=== PATIENT | female | born 1965 | race Hispanic/Latino ===

== ENCOUNTER 2018-01-29 18:22 | Inpatient (IN) | payer OTHER ==
[2018-01-29 19:33] LABS: Hemoglobin 6.3 g/dL (12.0-16.0); Mean Corpuscular HGB CONC 29.5 g/dL (32.0-36.0); Mean Corpuscular Hemoglobin 19.2 pg (27.0-31.0); Mean Corpuscular Volume 65.2 fl (81.0-99.0); Mean Platelet Volume 7.1 fL (7.4-10.4); Platelet Count 142 thou/uL (130-400); RBC Distribution Width 23.2 % (11.5-14.5); Red Blood Cell (RBC) Count 3.26 mill/uL (4.20-5.40); White Blood Cell (WBC) Count 7.8 thou/uL (4.8-10.8)
[2018-01-29 19:36] LABS: INR-International Normal Ratio 1.2; PTT 32.3 SEC (22.9-36.1); Prothrombin Time 15.4 SEC (12.0-14.7)
--- NOTE | 2018-01-29 19:41 | RAD ---
FRONTAL VIEW CHEST: INDICATIONS: Chest pain. COMPARISON: No prior comparison. FINDINGS: There is no evidence of consolidation, effusion, or pneumothorax. The cardiac silhouette is normal in size. Leads overly the chest, limiting detail. No acute osseous pathology is seen. IMPRESSION: No focal consolidation. POS: [facility]
[2018-01-29 19:58] LABS: MDiff Complete? YES
[2018-01-29 19:59] LABS: Anisocytosis MODERATE=16-30 cells (100X) (0-5/hpf); Band 2 % (5-11); Burr Cells SLIGHT = 2-5 cells (100X) (0-1/hpf); Elliptocytes SLIGHT = 2-5 cells (100X) (0-1/hpf); Eosinophils 2 % (0-10); Hypochromia MODERATE=16-30 cells (100X) (0-5/hpf); Lymphocytes 36 % (21-51); Microcytosis SLIGHT = 6-15 cells (100X) (0-5/hpf); Monocytes 1 % (0-10); Neutrophil 58 % (42-75); Nucleated RBC 1 % (0); Ovalocytes SLIGHT = 2-5 cells (100X) (0-1/hpf); PLT Morphology Comment Appears Adequate; Poikilocytosis MODERATE=16-30 cells (100X) (0-5/hpf); Polychromasia SLIGHT = 2-3 cells (100X) (0-2/hpf); Reflex for Review?? YES; Schistocytes SLIGHT = 2-5 cells (100X) (0-1/hpf); Tear Drops SLIGHT = 2-5 cells (100X) (0-1/hpf)
[2018-01-29 20:06] LABS: Bilirubin Negative (Negative); Blood, Urine Large (Negative); Clarity CLOUDY (Clear); Glucose, Urine (Dipstick) Negative (Negative); Leukocyte Moderate (Negative); Nitrite Positive (Negative); Protein, Urine (Dipstick) Trace mg/dL (Neg-Trace); Specific Gravity, Urine 1.016 (1.002-1.036)
[2018-01-29 20:08] LABS: Bacteria/HPF 4+ HPF (None Seen); Hyaline Casts/LPF 7-10 HYALINE CAST LPF (0-3 Hyaline); Pathc Cast-AUWi Flag 0.87 (0-2.49); RBC/HPF 21-50 HPF (0-3)
[2018-01-29 20:10] LABS: Pregnancy Test - Urine (BHCG) Negative (Negative); Pregu Control Background? CLEAR/WHITE (CLR/WHITE); Pregu Control Bar Appear? YES (CONTROL BAR); Specific Gravity 1.016 (1.002-1.036)
[2018-01-29 20:11] LABS: Anion Gap 9 mmol/L (10-20); BUN (Urea Nitrogen) 10 mg/dL (9.8-20.1); Calc. Creatinine Clearance 0 mL/min (70-130); Calcium 8.1 mg/dL (7.8-10.44); Carbon Dioxide 21 mmol/L (22-29); Chloride 110 mmol/L (98-107); Estimated GFR-MDRD Greater than 90; Glucose 70 mg/dL (70-105); Potassium 3.7 mmol/L (3.5-5.1); Sodium 136 mmol/L (136-145)
--- NOTE | 2018-01-29 20:56 | HP ---
DATE OF ADMISSION: 01/29/2018 CHIEF COMPLAINT: Dizziness. HISTORY OF PRESENT ILLNESS: This is a 52-year-old female. She lives in [place] and she wa s having some spotting for the past 1 to 2 years and has been closely followed by joaquín Gibbons by GI by, OB /CARDIAC NURSE SPECIALIST at [facility]. Today, she was feeling very dizzy and very tired and weak and she went to see Dr. Becerra at [place]. She is GRINDER OUTSIDE DIAMETER and she was found to have a hemoglobin of 3.2, 3.8 and the p atient was immediately given 2 units of blood transfusion and was transferred to [facility] for further evaluation. When patient arrived here, her repeat hemoglobin was 6.2 and she continues t o have dizziness. Denied having any chest pain, no nausea, no vomiting, no diarrhea. She denied hav ing any severe bleeding, so Dr. Shelby Lopes was consulted from the ER, who said there would be seei tobias hagan as a consult later in the evening once she has a blood transfusion is completed. Patient was seen in the ER, she was alert and oriented, did not appear to be in any acute distress. Denies havin g any nausea, vomiting, diarrhea. Denied having any GI bleeding. She did complain of burning on pas sing urine. Denied having any fever or chills or rigors. As the patient mentions that she started having intermittent bleeding for the past 2 years and she wa s put on IUD at [facility] [place] in 2016, but because of the persistent bleeding, IUD did fell o ff according to the patient. She denied taking any estrogen pills or any other medications to contro l the bleeding. She is not on any iron medications. PAST MEDICAL HISTORY: 1. Type 2 diabetes mellitus. 2. Iron deficiency anemia from chronic uterine bleeding. PAST SURGICAL HISTORY: History of cholecystectomy, history of tubal ligation, history of tonsillecto my. SOCIAL HISTORY: Patient is a nonsmoker. She is on nicotine patch now. She has no history of alcoho l or history of illicit drug use. FAMILY HISTORY: Patient says most of them in the family members had hysterectomy at a much early age than her, but otherwise no cancer history. REVIEW OF SYSTEMS: All 12 systems are reviewed with the patient thoroughly and found to be negative at this time. Systems reviewed are HEENT, CVS, ENVIRONMENTAL EMERGENCIES ASSISTANT, respiratory, GI, . All systems are reviewed a nd found to be negative except the ones stated in HPI. Constitutional: Weight loss or gain, ability to conduct usual activities. Skin: Rash, itching. Eyes: Double vision, pain. ENT/Mouth: Nose bleeding, neck stiffness, pain, tenderness. Cardiovascular: Palpitations, dyspnea on exertion, orthopnea. Respiratory: Shortness of breath, wheezing, cough, hemoptysis, fever or night sweats. Gastrointestinal: Poor appetite, abdominal pain, heartburn, nausea, vomiting, constipation, or diarr hea. Genitourinary: Urgency, frequency, dysuria, nocturia. Musculoskeletal: Pain, swelling. Neurologic/Psychiatric: Anxiety, depression. Allergy/Immunologic: Skin rash, bleeding tendency. HOME MEDICATIONS: None. ALLERGIES: No known drug allergies. PHYSICAL EXAMINATION: VITAL SIGNS: Blood pressures are 140/88, heart rate is 80, respiration is 18, saturation is 98%. GENERAL: The patient is moderately built. HEENT: Atraumatic, normocephalic, PERRLA. Extraocular muscles were intact. CARDIOVASCULAR: S1, S2 normal. No murmurs, rubs, or gallops. LUNGS: Bilateral air entry was equal. No wheezing, no crackles. ABDOMEN: Soft, nontender, no guarding, no rebound tenderness. Bowel sounds normal. MUSCULOSKELETAL: No calf tenderness. No pedal edema. No tenderness. No joint swelling. SKIN: No cyanosis, no edema, no rash, no pallor. NEUROLOGIC: Cranial nerve examination II-XII intact. No focal deficits were noted. PSYCHIATRIC: No signs of consolidation or signs of jenni was noted. LABORATORY DATA: WBC is 7.8, hemoglobin is 6.3, hematocrit is 21.3, platelets are 142. CMP is pendi ng at this time. ASSESSMENT AND PLAN: 1. Acute anemia blood loss from uterine bleeding. 2. Acute urinary tract infection. 3. Moderate dehydration. 4. Dizziness. PLAN: 1. Plan is to give 2 more units of blood transfusion at this time and closely monitor for any profus e bleeding. GRINDER OUTSIDE DIAMETER has been consulted Dr. Marianne Ryan. We will follow with her recommendations at this time. 2. Patient has evidence of urinary tract infection. We will start the patient on Rocephin 1 gram da harjinder and wait for urine cultures. Patient did not seem to be septic at this time. She has some ortho static symptoms with a drop in the blood pressures on standing, most likely this could be from the ac [place] blood loss. We will closely monitor with fall precautions. 3. Deep venous thrombosis prophylaxis, sequential compression device. 4. Patient has a history of type 2 diabetes mellitus, which seems to be well controlled. We will re start the patient on home medications and put the patient on sliding scale insulin at this time. The patient is more negative and spent 75 minutes of this patient.
[2018-01-29] MEDS ORDERED: Ondansetron HCl/PF 4 MG/2 ML Vial IVP PRN (22:15)
[2018-01-29] MEDS ORDERED: Acetaminophen 325 MG TAB PO PRN ×2 (22:15→22:26)
[2018-01-29] MEDS ORDERED: Ondansetron ODT 4 MG TAB SL PRN (22:15)
[2018-01-29] MEDS ORDERED: Dextrose 50% Abboject 50 ML SYRINGE SLOW IVP PRN (22:26)
[2018-01-29] MEDS ORDERED: Dextrose 5% in Water 1,000 ML IV PRN (22:26)
[2018-01-29] MEDS ORDERED: HYDROcodone/Acetaminophen 5/325 mg Tablet PO PRN (22:26)
[2018-01-29] MEDS ORDERED: Ondansetron ODT 4 MG TAB PO PRN (22:26)
[2018-01-29] MEDS ORDERED: HumaLOG 300 UNITS/3 ML VIAL SC PRN (22:26)
[2018-01-29] MEDS ORDERED: Famotidine 20 MG TAB PO SCH (22:45)
[2018-01-29] MEDS ORDERED: Docusate 100 MG CAP PO SCH (22:45)
[2018-01-29 23:23] VITALS: BMI 25.4
[2018-01-29] MEDS: Sodium Chloride 0.9% 1,000 ML IV SCH (23:43)
[2018-01-30] MEDS: Sodium Chloride 0.9% 1,000 ML IV SCH (05:33)
[2018-01-30 05:53] LABS: Anion Gap 8 mmol/L (10-20); BUN (Urea Nitrogen) 13 mg/dL (9.8-20.1); Calc. Creatinine Clearance 100 mL/min (70-130); Calcium 8.3 mg/dL (7.8-10.44); Carbon Dioxide 23 mmol/L (22-29); Chloride 111 mmol/L (98-107); Estimated GFR-MDRD Greater than 90; Glucose 84 mg/dL (70-105); Potassium 4.1 mmol/L (3.5-5.1); Sodium 138 mmol/L (136-145)
[2018-01-30 06:12] LABS: #Basophils 0.1 thou/uL (0.0-0.2); #Eosinphils 0.2 thou/uL (0.0-0.7); #Monocytes 0.6 thou/uL (0.11-0.59); #Neutrophils 6.9 thou/uL (1.40-6.50); %Basophils 0.7 % (0.0-1.0); %Eosinophils 2.2 % (0.0-10.0); %Lymphocytes 11.7 % (21.0-51.0); %Monocytes 6.8 % (0.0-10.0); %Neutrophils 78.7 % (42.0-75.0); Acanthocytes SLIGHT = 1-5 cells (100X) (None Seen); Anisocytosis MODERATE=16-30 cells (100X) (0-5/hpf); Bite Cells SLIGHT = 2-5 cells (100X) (0-1/hpf); Hemoglobin 8.2 g/dL (12.0-16.0); Hypochromia MODERATE=16-30 cells (100X) (0-5/hpf); MDiff Complete? YES; Mean Corpuscular HGB CONC 31.4 g/dL (32.0-36.0); Mean Corpuscular Hemoglobin 21.6 pg (27.0-31.0); Mean Corpuscular Volume 68.9 fl (81.0-99.0); Mean Platelet Volume 7.6 fL (7.4-10.4); Microcytosis MODERATE=15-30 cells (100X) (0-5/hpf); PLT Morphology Comment Appears Decreased; Platelet Count 121 thou/uL (130-400); RBC Distribution Width 24.1 % (11.5-14.5); Schistocytes SLIGHT = 2-5 cells (100X) (0-1/hpf); White Blood Cell (WBC) Count 8.8 thou/uL (4.8-10.8)
[2018-01-30] MEDS ORDERED: Famotidine 20 MG TAB PO SCH (09:00)
[2018-01-30] MEDS ORDERED: Docusate 100 MG CAP PO SCH (09:00)
--- NOTE | 2018-01-30 09:02 | PDOC.EVN ---
Event Note - Event Note Event Note: GYNECOLOGY CONSULTATION Asked to see Mrs Zhang this AM by Dr Ryan. The patient was admitted late last PM by James for dizziness and has recieved 4 units PRBCs for severe anemia due to HMB. HPI: 52 yo pleasant female, A1 with HX HMB. She is a patient of [facility] and has tried an IUS in the past for bleeding control, but by her story, it was expelled with an episode of HMB. She was sent here to [facility] for HMB. I saw the patient this am (01/30/18, 0845) after she was moved to the procedure room in 3 SE from 4 tower. I discuseed with her the need for EMB. I also discussed sono with her...that has been ordered for today. Prior sono did not show fibroids, by her verbal record. Now feels better. Review odf Systems: complete ROS performed and as per HPI. Past medical: DM Allergies: None Past Surg: Lorraine, BTL, tonsils Social: uses nicotine patch. Not sexually active PHYSICAL: VSS-AFEB NAD Pelvic: slight VB per os. Slightly atrophic changes, cervix without lesions...patent and multiparous No evidence lacs Assessment and plan: Perimenopausal pateint with HX HMB..now s/p 4 units PRBCs by Medicine. I performed EMB under clean conditions. CX prepped with betadine. Procedure details: PROCEDURE NOTE: EMB performed on 3 SE with Marianne, the patient's nurse at bedside. Rings were used to stabilize the anterior cervical lip. 3 passes by pipelle resulted in tissue into formaline jar. Patient to follow up at [facility] in one week for EMB results. Home with provera 10mg 1 po TID x 10 days to reduce bleeding. Sono prior to discharge home is recommended (sono ordered).
[2018-01-30] MEDS ORDERED: Ibuprofen 600 MG TAB PO PRN (10:22)
--- NOTE | 2018-01-30 10:44 | ULT ---
PELVIC ULTRASOUND: History: Abnormal uterine bleeding and anemia. Technique: Multiplanar grayscale and color doppler images were obtained in a transabdominal and trans vaginal pelvic ultrasound. Spectral analysis of the doppler waveforms of the ovaries were performed. FINDINGS: There is a small nabothian cyst in the cervix. The uterus is normal in size and appears without focal abnormality. The endometrial stripe is normal, measuring 14 mm. A small amount of free fluid is seen in the pelvis. Both ovaries are normal in size and appearance an d demonstrate normal internal flow. IMPRESSION: Nabothian cyst; otherwise unremarkable exam. POS: [facility]
[2018-01-30 13:11] VITALS: BP 144/76; TEMP 98.7
[2018-01-30] MEDS ORDERED: medroxyPROGESTERone Acetate 5 MG TAB PO SCH (15:00)
[2018-01-30] MEDS ORDERED: cefTRIAXone\\ROCEPHIN 1 GM in Sterile Water 10 ML SLOW IVP SCH (20:00)
--- NOTE | 2018-01-31 09:34 | DIS ---
DATE OF DISCHARGE: 01/30/2018 DISCHARGE DISPOSITION: Home. FOLLOWUP: Follow up with primary care physician, Dr. Becerra in 1 week. Follow up at [facility] as scheduled. ALLERGIES: No known drug allergies. The patient was seen on the day of discharge, denies any new complaints, symptomatically feels much b sandra. Requesting to be discharged. BRIEF HOSPITAL COURSE: The patient is a 52-year-old female with chronic menorrhagia presented to the emergency room with generalized weakness and dizziness. Her workup in the emergency room was consis tent with severe anemia with hemoglobin of 3.8 and hematocrit of 13.6. Please refer to the history a nd physical dated 01/29/2018 for further details. The patient was admitted to the hospital with a diagnosis of severe anemia secondary to menorrhagia. She received a total of 4 units of blood transfusion. The patient was evaluated by HEARING AID ASSISTANT, Dr. Eliu mace and Dr. Colon. She underwent endometrial biopsy. She will be discharged home with Provera for t he next 10 days. She was advised to [facility]. The patient was also found to have E. coli urinary tract infection sensitive to Bactrim. She will co mplete a course of Bactrim. Plan of care was discussed with the patient. She stated understanding. FINAL DIAGNOSES: 1. Generalized weakness secondary to severe anemia. 2. Blood loss anemia secondary to menorrhagia. 3. Urinary tract infection, Escherichia coli. 4. Dehydration. 5. Dizziness secondary to symptomatic anemia. 6. Diabetes mellitus type 2. 7. Iron deficiency chronic/chronic anemia. Plan of care was discussed with the patient in detail. She stated understanding.
--- NOTE | 2018-02-01 07:45 | PRG ---
DATE OF SERVICE: 02/01/2018 The patient had endometrial biopsy with an AUTOMATION ENGINEERING TECHNICIAN Hospitalist consultation. The pathology has return ed and came back as a benign endometrial polyp. The patient has been referred to [facility] [place] for followup. A copy of the pathology is being forwarded to them to review with the gregorio mitchell
== END 2018-01-30 14:29 | disposition home or self-care (01) | DRG 744 ==
LOC: ERS 18:22 → T4-B 22:05
PROVIDERS: ADMIT Family Medicine; ATTEND Family Medicine
PROC: 30233N1 Transfusion of Nonautologous Red Blood Cells into Peripheral Vein, Percutaneous Approach (ICD-10-PCS; 2018-01-29)
PROC: 0UDB7ZX Extraction of Endometrium, Via Natural or Artificial Opening, Diagnostic (ICD-10-PCS; principal; 2018-01-30)
DX: N88.8 Other specified noninflammatory disorders of cervix uteri (principal); N39.0 Urinary tract infection, site not specified; D50.9 Iron deficiency anemia, unspecified; E86.0 Dehydration; N93.9 Abnormal uterine and vaginal bleeding, unspecified; R42 Dizziness and giddiness; B96.20 Unspecified Escherichia coli [E. coli] as the cause of diseases classified elsewhere; N92.0 Excessive and frequent menstruation with regular cycle
CPT/HCPCS: 36415; 36416; 36430; 71045; 76856; 80048; 81025; 85025; 85060; 85610; 85730; 86850; 86900; 86901; 87077; 87086; 87186; 88305; 93005; 94760; 96374; 99406; A4216; G8978-GP-CH; G8979-GP-CH; G8980-GP-CH; G8987-GO-CH; G8988-GO-CH; G8989-GO-CH; J0696; P9016

== ENCOUNTER 2018-02-13 12:32 | Emergency (ER) | payer OTHER ==
[2018-02-13 13:37] LABS: #Basophils 0.1 thou/uL (0.0-0.2); #Eosinphils 0.1 thou/uL (0.0-0.7); #Lymphocytes 2.2 thou/uL (1.20-3.40); #Monocytes 0.7 thou/uL (0.11-0.59); #Neutrophils 4.4 thou/uL (1.40-6.50); %Basophils 1.7 % (0.0-1.0); %Eosinophils 1.8 % (0.0-10.0); %Lymphocytes 29.2 % (21.0-51.0); %Monocytes 9.6 % (0.0-10.0); %Neutrophils 57.7 % (42.0-75.0); Hemoglobin 9.8 g/dL (12.0-16.0); Mean Corpuscular HGB CONC 30.5 g/dL (32.0-36.0); Mean Corpuscular Hemoglobin 22.6 pg (27.0-31.0); Mean Platelet Volume 6.2 fL (7.4-10.4); Platelet Count 498 thou/uL (130-400); RBC Distribution Width 29.9 % (11.5-14.5); Red Blood Cell (RBC) Count 4.33 mill/uL (4.20-5.40); White Blood Cell (WBC) Count 7.6 thou/uL (4.8-10.8)
[2018-02-13 13:50] LABS: Anisocytosis MODERATE=16-30 cells (100X) (0-5/hpf); Hypochromia SLIGHT = 6-15 cells (100X) (0-5/hpf); Large Platelets SLIGHT; MDiff Complete? YES; Microcytosis SLIGHT = 6-15 cells (100X) (0-5/hpf); Ovalocytes SLIGHT = 2-5 cells (100X) (0-1/hpf); PLT Morphology Comment Appears Increased; Poikilocytosis SLIGHT = 6-15 cells (100X) (0-5/hpf); Polychromasia SLIGHT = 2-3 cells (100X) (0-2/hpf); Schistocytes SLIGHT = 2-5 cells (100X) (0-1/hpf); Target Cells SLIGHT = 2-5 cells (100X) (0-1/hpf); Tear Drops SLIGHT = 2-5 cells (100X) (0-1/hpf)
[2018-02-13 13:51] LABS: Bilirubin Negative (Negative); Blood, Urine Large (Negative); Clarity CLOUDY (Clear); Glucose, Urine (Dipstick) Negative (Negative); Leukocyte Small (Negative); Nitrite Negative (Negative); Protein, Urine (Dipstick) 30 mg/dL (Neg-Trace); Specific Gravity, Urine 1.023 (1.002-1.036)
[2018-02-13 13:52] LABS: BHCG - Serum Negative (NEGATIVE); Pregs Control Background? CLEAR/WHITE (CLR/WHITE); Pregs Control Bar Appear? YES (CONTROL BAR)
[2018-02-13 13:54] LABS: Bacteria/HPF None Seen HPF (None Seen); Hyaline Casts/LPF 0-3 HYALINE CAST LPF (0-3 Hyaline); Pathc Cast-AUWi Flag 0.32 (0-2.49)
[2018-02-13 13:59] LABS: Yeast-AUWi Flag 104.9 (0-25.0)
[2018-02-13 14:50] LABS: RBC/HPF GREATER THAN 50-TNTC HPF (0-3)
[2018-02-13 14:51] LABS: Yeast-All Forms None Seen HPF (None Seen)
== END 2018-02-13 14:46 | disposition home or self-care (01) ==
LOC: ERS 12:32
DX: N93.9 Abnormal uterine and vaginal bleeding, unspecified (principal); E11.9 Type 2 diabetes mellitus without complications; F17.210 Nicotine dependence, cigarettes, uncomplicated; Z79.899 Other long term (current) drug therapy; Z79.84 Long term (current) use of oral hypoglycemic drugs
CPT/HCPCS: 36415; 81003; 81015; 84703; 85025; 99284

== ENCOUNTER 2018-03-09 14:01 | Outpatient (CLI) | payer OTHER ==
[2018-03-09 14:59] LABS: Hemoglobin 11.6 g/dL (12.0-16.0); Mean Corpuscular HGB CONC 31.7 g/dL (32.0-36.0); Mean Corpuscular Hemoglobin 26.9 pg (27.0-31.0); Mean Corpuscular Volume 84.8 fl (81.0-99.0); Platelet Count 276 thou/uL (130-400); RBC Distribution Width 26.4 % (11.5-14.5); Red Blood Cell (RBC) Count 4.32 mill/uL (4.20-5.40); White Blood Cell (WBC) Count 7.7 thou/uL (4.8-10.8)
== END 2018-03-09 14:02 | disposition home or self-care (01) ==
LOC: LABBT 14:01
PROVIDERS: ATTEND Obstetrics & Gynecology
DX: Z01.812 Encounter for preprocedural laboratory examination (principal); N92.0 Excessive and frequent menstruation with regular cycle; N84.0 Polyp of corpus uteri; D64.9 Anemia, unspecified
CPT/HCPCS: 85027; 86850; 86870; 86900; 86901; 86904; 86905; 86922

== ENCOUNTER 2018-03-12 07:27 | Day surgery (SDC) | payer OTHER ==
[2018-03-09 14:13] VITALS: BMI 24.3
[2018-03-12] MEDS ORDERED: CeleCOXIB 100 MG CAP ONE (08:41)
[2018-03-12] MEDS ORDERED: Famotidine/PF 20 mg/2ml Vial ONE ×2 (08:41)
[2018-03-12] MEDS ORDERED: Gabapentin 300 MG CAP ONE (08:41)
[2018-03-12] MEDS ORDERED: CEFAZOLIN/Water 2 GM/20 ML SYRINGE ONE (08:41)
[2018-03-12] MEDS ORDERED: Bupivacaine HCl 0.5%/Epinephrine 1:200,000/PF 30 ml Vial ONE (09:04)
[2018-03-12] MEDS ORDERED: Fentanyl 250 MCG/5 ML VIAL ONE (09:07)
--- NOTE | 2018-03-12 09:19 | HP ---
DATE OF SURGERY: 03/12/2018 PREOPERATIVE DIAGNOSES: 1. Menorrhagia with irregular cycle. 2. Endometrial polyp. 3. Anemia. HISTORY OF PRESENT ILLNESS: Ms. Meron Zhang is a 52-year-old G3, P2-0-1-2 and followed in my clini c for 2 years with irregular heavy bleeding. The patient is known to have an endometrial polyp by en dometrial biopsy. Recently, she had a hemoglobin dropped to as low as 3.8 and required 4 units of pa cked red blood cells. The patient had been counseled for hysterectomy for approximately the last 2 y ears, but has been awaiting surgery for financial reasons. The patient has failed medical management and now desires definitive surgical management with laparoscopic hysterectomy. PAST MEDICAL HISTORY: Diabetes. PAST SURGICAL HISTORY: Cholecystectomy and tubal ligation. CURRENT MEDICATIONS: Iron and metformin 500 mg once a day. OBSTETRICAL HISTORY: Two vaginal deliveries. Largest baby weighed 7.5 pounds. GYNECOLOGIC HISTORY: No history of abnormal Pap smear. Her tubes are tied. Her periods are irregul ar and heavy. No history of PID or STD. SOCIAL HISTORY: The patient smokes daily. She drinks 2-3 times a month. She does not use any recre ational drugs. She works biology adjunct instructor and is . ALLERGIES: No known drug or latex allergies. FAMILY HISTORY: Negative with the exception of diabetes and hyperlipidemia. No known cancers in the family. REVIEW OF SYSTEMS: Negative except per HPI. PHYSICAL EXAMINATION: VITAL SIGNS: Blood pressure 120/70, BMI 24.4. GENERAL: No acute distress. Alert and oriented. LUNGS: Clear to auscultation, nonlabored. CARDIOVASCULAR: No murmurs, rubs, or gallops. ABDOMEN: Soft, no guarding, no masses, no hepatosplenomegaly. GENITOURINARY: Normal external female genitalia. Normal vaginal mucosa, no cervical lesions, no cer vical masses. Uterus is not enlarged, nontender. Perineum is normal. MUSCULOSKELETAL: Normal. NEUROLOGIC: Grossly normal. SKIN: Normal. ASSESSMENT AND PLAN: Ms. Meron Zhang is a 52-year-old multiparous female with history of tubal lig ation and a longstanding history of menorrhagia with irregular cycles as recently required hospital a dmission for transfusion of blood from endometrial biopsy. The patient is pleased to have an endomet rial polyp and discussed management options including past failed medical options, hysteroscopy, D&C with polypectomy as well as endometrial ablation versus total laparoscopic hysterectomy. The patient desires definitive management with total laparoscopic hysterectomy. She also consents to placement of ON-Q pump in the event that she is a candidate after surgery for same day discharge. The patient has been counseled. She understands the risk and benefits of the procedure as well as alternative tr eatment options. She understands the risks are to include, but not limited to bleeding, infection, d amage to intraabdominal organs or into the pelvis, possible need for emergent laparotomy, inability t o fully diagnose and treat all conditions at the time of surgery and possible need for future and/or medical management.
[2018-03-12] MEDS ORDERED: Ropivacaine 0.2% 550 ML 550 ML NERVE BLCK SCH (09:45)
[2018-03-12] MEDS ORDERED: Dexamethasone 20 MG/5 ML VIAL ONE (10:56)
[2018-03-12] MEDS ORDERED: Glycopyrrolate 0.2 MG/ML 5 ML SYRINGE ONE (10:56)
[2018-03-12] MEDS ORDERED: Ondansetron HCl/PF 4 MG/2 ML Vial ONE (10:56)
[2018-03-12] MEDS ORDERED: PROPOFOL 200 MG/20 ML VIAL ONE (10:56)
[2018-03-12] MEDS ORDERED: Ketorolac Tromethamine 30 MG/ML VIAL ONE (10:56)
[2018-03-12] MEDS ORDERED: Lidocaine 1% PF 5 ML VIAL ONE (10:56)
[2018-03-12] MEDS ORDERED: Promethazine HCl 25 MG/ML VIAL SLOW IVP PRN (11:05)
[2018-03-12] MEDS ORDERED: Promethazine HCl 25 MG/ML VIAL IM PRN (11:05)
[2018-03-12] MEDS ORDERED: Ondansetron HCl/PF 4 MG/2 ML Vial IVP PRN ×2 (11:05→16:17)
[2018-03-12] MEDS ORDERED: Fentanyl 100 MCG/2 ML VIAL ONE (11:32)
[2018-03-12] MEDS ORDERED: Bisacodyl 10 MG SUPP PR PRN (16:17)
[2018-03-12] MEDS ORDERED: Acetaminophen/Codeine 30-300mg Tablet PO PRN ×2 (16:17)
[2018-03-12] MEDS ORDERED: Ibuprofen 800 MG TAB PO SCH (16:17)
[2018-03-12] MEDS ORDERED: Simethicone Chewable 80 MG TAB PO PRN (16:17)
[2018-03-12] MEDS ORDERED: Lactated Ringer's 1,000 ML IV SCH (16:17)
[2018-03-12] MEDS ORDERED: diphenhydrAMINE 25 MG CAP PO PRN (16:17)
[2018-03-12] MEDS ORDERED: Ketorolac Tromethamine 30 MG/ML VIAL IVP SCH (16:17)
[2018-03-12] MEDS ORDERED: Sodium Chloride 0.9% 1,000 ML IV SCH (16:17)
[2018-03-12 17:12] VITALS: BP 135/64; TEMP 98
--- NOTE | 2018-03-12 18:38 | OP ---
DATE OF PROCEDURE: 03/12/2018 PREOPERATIVE DIAGNOSES: Menorrhagia, anemia, endometrial polyp. POSTOPERATIVE DIAGNOSES: Menorrhagia, anemia, endometrial polyp. PROCEDURES PERFORMED: Robotic-assisted total laparoscopic hysterectomy with bilateral salpingectomy and placement of ON-Q pump. SURGEON: Christopher De Dios D.O. CAB WORKER: Bishnu Lyn M.D. ANESTHESIA: GETA. COMPLICATIONS: None. ESTIMATED BLOOD LOSS: 50 mL/ INTRAOPERATIVE FINDINGS: Enlarged uterus that sounds to approximately 8-9 cm, but otherwise within n ormal limits. Normal appearing cervix, vagina, normal appearing fallopian tubes and ovaries bilatera lly. PROCEDURE DETAILS: The patient was taken back to the OR with IV fluids running. Once she was in the OR, she was placed in dorsal supine position and anesthesia was obtained. Once the patient was asle ep, she was placed in low dorsal lithotomy position and the abdomen and vagina were prepped and drape d in normal fashion for gynecologic laparoscopy. Surgeons were scrubbed in. A Snider catheter was pl aced in the bladder to drain the bladder. After the bladder was drained approximately 70 mL, a Toome y syringe was placed at the Snider tip for bladder manipulation if indicated during the case. An oper ative speculum was then placed into the vagina. The cervix was easily identified and the anterior li p of the cervix was grasped with a single tooth tenaculum. The uterus sounded to approximately 9 cm. A PELON Lorena manipulator was assembled with an 8 cm tip and a 4 cm cervical cup for the colpotomy rin g, it was placed into the uterus and vagina with the balloon tip was inflated in normal fashion. Wi th the exception of the uterine manipulator, the instruments were removed from the vagina. Surgeon's gloves were changed and attention was turned to laparoscopic portion of the case, approximately 2 cm above the supraumbilical fold local 0.25% Marcaine was placed into the skin. A 12 mm skin incision was then made with the scalpel. A Veress needle was placed through the incision and the abdomen was insufflated without difficulty. The Veress needle was then removed and a 12 mm trocar was placed thr ough this incision. Next, the laparoscope was placed through the trocar with the above findings note d. Next, under direct visualization, the left lower quadrant port site was prepped with Marcaine loc ally below the subcutaneous tissue. An 8 mm skin incision was made and the 8 mm trocar was placed un monique direct visualization through the skin and into the peritoneal cavity. In similar fashion, a righ t lower quadrant 8 mm port and left upper quadrant 11 mm port were placed under direct visualization. Next, the robotic arms were docked and the hysterectomy portion of the procedure began. Beginning on the patient's left side, the left fimbriated tube segment was elevated away from the ovary, cauter ized and excised from the ovary and then removed from the intra-abdominal cavity for pathologic revie w. Remaining tube segment on the left side was cauterized and excised. It was then transected and r emoved from the surgical field as well. The patient's left utero-ovarian ligament was cauterized wit h bipolar cautery and incised freeing it from the uterus and allowing it to fall away to the pelvic s idewall on the left. The round ligament was then cauterized, it was incised and divided into anterio r and posterior leafs. The anterior and posterior leafs were then dissected down towards the level o f the uterine artery. Once uterine artery was reached, a bladder flap was then created anteriorly. The bladder flap was created by dissecting peritoneal layers, one thin layer at a time and gently bru shing the bladder away from the planned colpotomy site. Once the bladder flap was completed, the [place] rine artery was cauterized and transected with the dissection completed on the patient's left side, a ttention was turned to the right side. On the right side, an approximate 1 to 1.5 cm fibrous lesion was noted within the mesosalpinx. The fimbriated end on the patient's right side was dissected away from the ovary and excised and removed for pathologic review. The tube segment on the right side was dissected away from the round ligament, but was left attached to the uterine specimen. The uteroova priyank ligament on the patient's right side was cauterized with bipolar cautery and transected with the ovary falling away to the patient's right side. The round ligament was then identified, cauterized, and transected. It was then dissected down into anterior and posterior leafs. The bladder flap was completed anteriorly on the patient's right side. The uterine artery on the patient's right side wa s cauterized and transected. The blood supply taken down bilaterally and the adnexal dissection comp lete, attention was turned to the colpotomy portion of the procedure. Beginning anteriorly, a colpot santiago was made. It was completed circumferentially. The specimen was then retracted into the vagina a nd remained there for the rest of the case for pneumoperitoneum. The dissection planes and the vagin al cuff were copiously irrigated and suctioned dry. Any small areas of bleeding on the vaginal cuff were controlled with bipolar cautery. The suture was then introduced into the surgical field. The v aginal cuff was closed with Stratafix suture in a running fashion and in 2 layers. Once the vaginal cuff closure was complete, the cuff was noted to be hemostatic. The cuff and adnexal pedicles were i rrigated again and suctioned dry. The pressure was dropped to approximately 6 mmHg with no bleeding noted. An ON-Q catheter tip was then placed through the subcutaneous tissue under direct visualizati on approximately 4-5 cm below the umbilicus. The catheter was pulled down into the cul-de-sac and pr imed. The catheter sheath was removed. All instruments were then removed from the abdomen. The cou nts were correct. All 4 trocars were removed. The gas was released from the abdomen. A sterile sunil ssing was placed over the ON-Q catheter tip entering the skin. Skin incisions were clean. The supra umbilical incision was closed at the fascial layer with Vicryl suture. All 4 skin incisions were the n closed with Monocryl suture and dressed with Dermabond dressing. The vagina was inspected at the e nd of the case with no areas of bleeding noted and the vaginal cuff was noted to be dry. The patient was then cleaned, dried, taken out of lithotomy position and transferred to the recovery room where she will later be moved to the 3rd floor for continued observation.
== END 2018-03-12 17:12 | disposition home or self-care (01) ==
LOC: SDC 07:27 → 3SE 11:36 → SDC 17:12
PROVIDERS: ATTEND Obstetrics & Gynecology
PROC: 0UT74ZZ Resection of Bilateral Fallopian Tubes, Percutaneous Endoscopic Approach (ICD-10-PCS; principal; 2018-03-12)
PROC: 0UT94ZZ Resection of Uterus, Percutaneous Endoscopic Approach (ICD-10-PCS; principal; 2018-03-12)
DX: D28.2 Benign neoplasm of uterine tubes and ligaments (principal); N80.0 Endometriosis of uterus; N84.0 Polyp of corpus uteri; N92.1 Excessive and frequent menstruation with irregular cycle; D64.9 Anemia, unspecified; E11.9 Type 2 diabetes mellitus without complications; F17.200 Nicotine dependence, unspecified, uncomplicated; Z79.84 Long term (current) use of oral hypoglycemic drugs; Z79.899 Other long term (current) drug therapy; Z98.51 Tubal ligation status
CPT/HCPCS: 88307; A4306; J0131; J0670; J1100; J1885; J2001; J2405; J2704; J2795; J3010; S0028